=== PATIENT | female | born 1975 | race Two or more races ===

== ENCOUNTER 2024-04-08 05:51 | Day surgery (SDC) | payer OTHER ==
[2024-04-05 09:29] VITALS: BMI 27.4
[2024-04-08] MEDS ORDERED: LIDOCAINE HCL/PF 2% SDV 5ML VIAL ONE (10:40)
[2024-04-08] MEDS ORDERED: KETOROLAC TROMETHAMINE 30 MG/1 ML VIAL ONE (10:40)
[2024-04-08] MEDS ORDERED: ONDANSETRON 4 MG/2 ML VIAL ONE ×2 (10:40→12:20)
[2024-04-08] MEDS ORDERED: DEXAMETHASONE SOD PHOSPHATE 4 MG/1 ML VIAL ONE (10:40)
[2024-04-08] MEDS ORDERED: oxyCODONE HCL 5 MG TABLET PO PRN (10:54)
[2024-04-08] MEDS ORDERED: LACTATED RINGERS SOLUTION 1,000 ML IV SCH (11:00)
[2024-04-08] MEDS ORDERED: MIDAZOLAM HCL 2 MG/2 ML SINGLE DOSE VIAL ONE (11:23)
[2024-04-08] MEDS ORDERED: PROPOFOL 20 ML ONE ×2 (11:24→11:30)
[2024-04-08] MEDS ORDERED: ROCURONIUM BROMIDE 50 MG/5 ML SYRINGE ONE (11:37)
[2024-04-08] MEDS ORDERED: GLYCOPYRROLATE 0.2 MG/1 ML VIAL ONE (11:39)
[2024-04-08] MEDS ORDERED: SUGAMMADEX SODIUM 200 MG/2 ML VIAL ONE (11:53)
[2024-04-08] MEDS: ONDANSETRON 4 MG/2 ML VIAL IVPUSH PRN (12:23)
[2024-04-08 12:52] VITALS: TEMP 97.1
[2024-04-08 13:43] VITALS: BP 122/84; PULSE 77; RESP 18
== END 2024-04-08 14:10 | disposition home or self-care (01) ==
LOC: JASU-SURG 05:51
PROVIDERS: ATTEND Obstetrics & Gynecology Obstetrics
PROC: 0UJD8ZZ Inspection of Uterus and Cervix, Via Natural or Artificial Opening Endoscopic (ICD-10-PCS; principal; 2024-04-08 10:00)
DX: R10.2 Pelvic and perineal pain (principal); N88.2 Stricture and stenosis of cervix uteri
CPT/HCPCS: 88305-TC; 94760

== ENCOUNTER 2024-06-10 04:09 | Inpatient (IN) | payer OTHER ==
[2024-06-05 14:09] VITALS: BMI 26.6
[2024-06-10] MEDS ORDERED: MIDAZOLAM HCL 2 MG/2 ML SINGLE DOSE VIAL ONE (09:25)
[2024-06-10] MEDS ORDERED: SUCCINYLCHOLINE CHLORIDE 200 MG/10 ML SYRINGE ONE (09:25)
[2024-06-10] MEDS ORDERED: PROPOFOL 20 ML ONE (09:25)
[2024-06-10] MEDS ORDERED: ONDANSETRON 4 MG/2 ML VIAL IVPUSH PRN (09:44)
[2024-06-10] MEDS ORDERED: ROCURONIUM BROMIDE 50 MG/5 ML SYRINGE ONE (10:19)
[2024-06-10] MEDS ORDERED: CLINDAMYCIN 600MG PREMIX IVPB 1,200 MG/100 ML BAG IVPB ONE (10:30)
[2024-06-10] MEDS: CLINDAMYCIN 900 MG PREMIX BAG IVPB ONE (10:34)
[2024-06-10] MEDS ORDERED: HYDROmorphone HCl 2 MG/ML VIAL ONE (11:25)
[2024-06-10] MEDS ORDERED: DEXAMETHASONE SOD PHOSPHATE 4 MG/1 ML VIAL ONE (12:27)
[2024-06-10] MEDS ORDERED: SUGAMMADEX SODIUM 200 MG/2 ML VIAL ONE (12:27)
[2024-06-10] MEDS ORDERED: ONDANSETRON 4 MG/2 ML VIAL ONE (12:27)
[2024-06-10] MEDS ORDERED: ACETAMINOPHEN 1000 MG/100 ML BAG IVPB PRN (13:24)
[2024-06-10] MEDS ORDERED: HYDROmorphone *PCA* 10MG/50ML DISP.SYRIN ONE (13:43)
[2024-06-10] MEDS: HYDROmorphone *PCA* 10MG/50ML DISP.SYRIN PCA SCH (14:00)
[2024-06-10] MEDS: LACTATED RINGERS SOLUTION 1,000 ML IV SCH (14:00)
[2024-06-10] MEDS: ONDANSETRON 4 MG/2 ML VIAL IVPUSH PRN (20:18)
[2024-06-10] MEDS: ONDANSETRON 4 MG/2 ML VIAL IVPUSH ONE (23:26)
[2024-06-11 08:16] LABS: BASO % 0.6 % (0-2.0); EOS % 0.5 % (0-4.5); HEMATOCRIT 32.2 % (32.4-45.2); HEMOGLOBIN 10.9 GM/dL (10.7-15.3); LYMPH % 18.9 % (8-40); MCH 30.7 pg (25.7-33.7); MCHC 33.9 g/dl (32.0-36.0); MEAN CELL VOLUME 90.6 fl (80-96); MEAN PLT VOLUME 7.2 fl (7.5-11.1); MONO % 10.7 % (3.8-10.2); NEUT % 69.3 % (42.8-82.8); PLATELET COUNT 203 10^3/uL (134-434); RBC 3.55 M/mm3 (3.60-5.2); RDW 15.2 % (11.6-15.6); WHITE BLOOD COUNT 9.2 K/mm3 (4.0-10.0)
[2024-06-11] MEDS: ENOXAPARIN NA (PORCINE) 40 MG/0.4 ML DISP.SYRIN SQ SCH (08:56)
[2024-06-11] MEDS: METOCLOPRAMIDE HCL INJECTION 10 MG/2 ML VIAL IVPUSH ONE (08:58)
[2024-06-11] MEDS: IBUPROFEN 800 MG/8 ML IJ IVPB PRN (12:29)
[2024-06-11] MEDS: ONDANSETRON 4 MG/2 ML VIAL IVPUSH PRN (14:15)
[2024-06-11 14:16] VITALS: RESP 18
[2024-06-11] MEDS: NARATRIPTAN 2.5 MG PO PRN ×2 (15:50→18:03)
[2024-06-11] MEDS: LEVOTHYROXINE NA 50 MCG TABLET (FP) PO ONE (18:01)
[2024-06-11] MEDS: DOCUSATE SODIUM 100 MG CAPSULE (FP) PO SCH (21:11)
[2024-06-11] MEDS: oxyCODONE HCL 5 MG TABLET PO PRN (22:36)
[2024-06-12] MEDS: LEVOTHYROXINE NA 50 MCG TABLET (FP) PO SCH (09:14)
[2024-06-12] MEDS: ATOGEPANT PO SCH (09:43)
[2024-06-12] MEDS: BISACODYL 10 MG SUPP.RECT PR ONE (10:15)
[2024-06-12 11:57] VITALS: BP 114/76; PULSE 82; TEMP 98.5
[2024-06-12] MEDS: IBUPROFEN 600 MG TABLET (FP) PO PRN (12:19)
[2024-06-12] MEDS: NARATRIPTAN 2.5 MG PO SCH (12:22)
[2024-06-13] MEDS ORDERED: LEVOTHYROXINE NA 50 MCG TABLET (FP) PO SCH (07:00)
== END 2024-06-12 16:40 | disposition home or self-care (01) | DRG 519 ==
LOC: J2C 04:09 → J3W 15:37
PROVIDERS: ADMIT Obstetrics & Gynecology Obstetrics; ATTEND Obstetrics & Gynecology Obstetrics
PROC: 0UT70ZZ Resection of Bilateral Fallopian Tubes, Open Approach (ICD-10-PCS; 2024-06-10)
PROC: 0UT20ZZ Resection of Bilateral Ovaries, Open Approach (ICD-10-PCS; 2024-06-10)
PROC: 0UT90ZZ Resection of Uterus, Open Approach (ICD-10-PCS; principal; 2024-06-10 10:00)
DX: D25.2 Subserosal leiomyoma of uterus (principal); N83.311 Acquired atrophy of right ovary
CPT/HCPCS: 36415; 81025; 85025; 86850; 86900; 86901; 88307-TC; 94760